=== PATIENT | male | born 1960 | race Caucasian/White ===

== ENCOUNTER → 2021-11-26 | Outpatient (CLI) | payer OTHER ==
[2021-11-26 10:43] LABS: BLOOD UREA NITROGEN 18 MG/DL (7-18); GLOMERULAR FILTRATION RATE > 60.0 (>49); POTASSIUM SERUM 4.6 MEQ/L (3.5-5.1)
== END ==
LOC: EDBD 09:30 → M LAB 09:30
DX: I48.19 Other persistent atrial fibrillation (principal)

== ENCOUNTER → 2022-08-05 | Outpatient (CLI) | payer OTHER ==
[2022-08-05 10:31] LABS: BLOOD UREA NITROGEN 16 MG/DL (9-23); CREATININE FOR GFR 0.96 MG/DL (0.70-1.30); GLOMERULAR FILTRATION RATE > 60.0 (>49); POTASSIUM SERUM 4.5 MMOL/L (3.5-5.1)
== END ==
LOC: M EKG 09:07
DX: I48.19 Other persistent atrial fibrillation (principal); R94.31 Abnormal electrocardiogram [ECG] [EKG]

== ENCOUNTER → 2022-11-11 | Outpatient (CLI) | payer OTHER ==
[2022-11-11 10:15] LABS: BLOOD UREA NITROGEN 14 MG/DL (9-23); CREATININE FOR GFR 0.94 MG/DL (0.70-1.30); GLOMERULAR FILTRATION RATE > 60.0 (>49); POTASSIUM SERUM 4.6 MMOL/L (3.5-5.1)
== END ==
LOC: M EKG 08:53
DX: I48.19 Other persistent atrial fibrillation (principal)

== ENCOUNTER → 2023-02-05 | Outpatient (CLI) | payer OTHER ==
[2023-02-05 10:48] LABS: ALT/SGPT 19 U/L (7.0-40); AST/SGOT 17 U/L (<34); BLOOD UREA NITROGEN 18 MG/DL (9-23); CREATININE FOR GFR 0.96 MG/DL (0.70-1.30); GLOMERULAR FILTRATION RATE > 60.0 (>49); POTASSIUM SERUM 4.2 MMOL/L (3.5-5.1)
== END ==
LOC: M EKG 09:31
PROVIDERS: ATTEND Internal Medicine Clinical Cardiac Electrophysiology
DX: I48.19 Other persistent atrial fibrillation (principal)

== ENCOUNTER → 2023-04-30 | Outpatient (CLI) | payer OTHER ==
[2023-04-30 12:45] LABS: BLOOD UREA NITROGEN 14 MG/DL (9-23); CREATININE FOR GFR 0.92 MG/DL (0.70-1.30); GLOMERULAR FILTRATION RATE > 60.0 (>49); POTASSIUM SERUM 4.4 MMOL/L (3.5-5.1)
== END ==
LOC: M EKG 10:45
PROVIDERS: ATTEND Family Medicine
DX: I48.19 Other persistent atrial fibrillation (principal); R00.1 Bradycardia, unspecified; R94.31 Abnormal electrocardiogram [ECG] [EKG]

== ENCOUNTER → 2023-10-28 | Outpatient (CLI) | payer OTHER ==
[2023-10-28 11:24] LABS: BLOOD UREA NITROGEN 14 MG/DL (9-23); CREATININE FOR GFR 0.91 MG/DL (0.70-1.30); GLOMERULAR FILTRATION RATE > 60.0 (>49); POTASSIUM SERUM 4.4 MMOL/L (3.5-5.1)
== END ==
LOC: M EKG 09:54
PROVIDERS: ATTEND Family Medicine
DX: I48.19 Other persistent atrial fibrillation (principal); R00.1 Bradycardia, unspecified; I45.10 Unspecified right bundle-branch block

== ENCOUNTER → 2024-01-26 | Outpatient (CLI) | payer OTHER ==
[2024-01-26 16:31] LABS: ALT/SGPT 14 U/L (7.0-40); AST/SGOT 10 U/L (<34); BLOOD UREA NITROGEN 16 MG/DL (9-23); CREATININE FOR GFR 0.87 MG/DL (0.70-1.30); GLOMERULAR FILTRATION RATE > 60.0 (>49); POTASSIUM SERUM 4.4 MMOL/L (3.5-5.1)
== END ==
LOC: M EKG 14:52
PROVIDERS: ATTEND Family Medicine
DX: I48.19 Other persistent atrial fibrillation (principal)